=== PATIENT | male | born 1970 | race Caucasian/White ===

== ENCOUNTER 2019-01-24 21:04 | Observation (INO) | payer OTHER ==
[2019-01-24 22:56] LABS: ADD MAN DIFF? NO
[2019-01-24 22:58] LABS: BASOPHIL # 0.1 10^3/ul (0.0-0.1); BASOPHILS % 0.8 % (0.0-2.0); EOSINOPHILS # 0.2 10^3/ul (0.0-0.5); EOSINOPHILS % 2.5 % (0.0-7.0); HEMATOCRIT 40.2 % (42.0-52.0); HEMOGLOBIN 14.1 g/dl (14.0-18.0); LYMPHOCYTES # 1.9 10^3/ul (0.8-2.9); LYMPHOCYTES % 21.2 % (15.0-51.0); MEAN CORPUSCULAR HEMOGLOBIN 31.8 pg (29.0-33.0); MEAN CORPUSCULAR HGB CONC 35.1 g/dl (32.0-37.0); MEAN CORPUSCULAR VOLUME 90.7 fl (82.0-101.0); MEAN PLATELET VOLUME 11.7 fl (7.4-10.4); MONOCYTES % 11.2 % (0.0-11.0); NEUTROPHIL # 5.8 10^3/ul (1.6-7.5); NEUTROPHILS % 64.1 % (39.0-77.0); PLATELET COUNT 262 10^3/UL (140-415); RED BLOOD COUNT 4.43 10^6/ul (4.70-6.10); RED CELL DISTRIBUTION WIDTH 12.2 % (11.5-14.5)
[2019-01-24 23:15] LABS: ALANINE AMINOTRANSFERASE 34 IU/L (13-69); ALBUMIN 4.3 g/dl (3.3-4.9); ALBUMIN/GLOBULIN RATIO 1.13; ALKALINE PHOSPHATASE 98 IU/L (42-121); ANION GAP 9 (5-13); ASPARTATE AMINO TRANSFERASE 37 IU/L (15-46); BILIRUBIN,INDIRECT 0.4 mg/dl (0-1.1); BILIRUBIN,TOTAL 0.4 mg/dl (0.2-1.3); BLOOD UREA NITROGEN 28 mg/dl (7-20); CALCIUM 9.1 mg/dl (8.4-10.2); CARBON DIOXIDE 27 mmol/L (21-31); CHLORIDE 105 mmol/L (97-110); Estimated GFR 50 mL/min (>60); GLUCOSE 124 mg/dl (70-220); POTASSIUM 3.9 mmol/L (3.5-5.1); SODIUM 141 mmol/L (135-144); TOTAL PROTEIN 8.1 g/dl (6.1-8.1)
[2019-01-24 23:27] LABS: B-TYPE NATRIURETIC PEPTIDE 36 PG/ML (0-125); TROPONIN-I < 0.012 ng/ml (0.000-0.120)
[2019-01-25] MEDS ORDERED: ACETAMINOPHEN 325 MG TAB PO ×2 (03:30→10:00)
[2019-01-25] MEDS ORDERED: ONDANSETRON 4 MG INJ IV ×2 (03:30→10:00)
[2019-01-25 05:25] LABS: CREATINE KINASE 219 IU/L (23-200)
[2019-01-25 05:37] LABS: CK INDEX 0.5; TROPONIN-I 0.024 ng/ml (0.000-0.120)
[2019-01-25] MEDS ORDERED: NACL 0.9% 3 ML SYG IV (10:00)
[2019-01-25 10:44] LABS: CREATINE KINASE 194 IU/L (23-200)
[2019-01-25 10:57] LABS: CK INDEX 0.6; TROPONIN-I < 0.012 ng/ml (0.000-0.120)
[2019-01-25] MEDS ORDERED: AL HYDROX/MG HYDROX/SIMETH 30 ML CUP PO (12:00)
[2019-01-25] MEDS: PANTOPRAZOLE (EC) 40 MG TAB PO ×2 (13:30→22:38)
[2019-01-25] MEDS ORDERED: NITROGLYCERIN (SL) 0.4 MG TAB SL (14:30)
[2019-01-25 17:11] LABS: CREATINE KINASE 174 IU/L (23-200)
[2019-01-25 17:25] LABS: CK INDEX 0.6; CK-MB 1.06 ng/ml (0.0-2.4); TROPONIN-I < 0.012 ng/ml (0.000-0.120)
[2019-01-25] MEDS: SUCRALFATE (100 MG/ML) 10ML CUP PO (22:37)
[2019-01-26 06:46] LABS: ADD MAN DIFF? NO
[2019-01-26 06:49] LABS: BASOPHIL # 0.1 10^3/ul (0.0-0.1); BASOPHILS % 0.9 % (0.0-2.0); EOSINOPHILS # 0.3 10^3/ul (0.0-0.5); EOSINOPHILS % 4.4 % (0.0-7.0); HEMATOCRIT 43.1 % (42.0-52.0); HEMOGLOBIN 14.6 g/dl (14.0-18.0); LYMPHOCYTES # 2.1 10^3/ul (0.8-2.9); LYMPHOCYTES % 27.3 % (15.0-51.0); MEAN CORPUSCULAR HEMOGLOBIN 30.7 pg (29.0-33.0); MEAN CORPUSCULAR HGB CONC 33.9 g/dl (32.0-37.0); MEAN CORPUSCULAR VOLUME 90.7 fl (82.0-101.0); MEAN PLATELET VOLUME 11.7 fl (7.4-10.4); MONOCYTE # 0.8 10^3/ul (0.3-0.9); MONOCYTES % 10.2 % (0.0-11.0); NEUTROPHIL # 4.4 10^3/ul (1.6-7.5); NEUTROPHILS % 56.8 % (39.0-77.0); PLATELET COUNT 257 10^3/UL (140-415); RED BLOOD COUNT 4.75 10^6/ul (4.70-6.10); RED CELL DISTRIBUTION WIDTH 12.5 % (11.5-14.5)
[2019-01-26 06:49] LABS: WHITE BLOOD COUNT 7.8 10^3/ul (4.8-10.8)
[2019-01-26 07:09] LABS: HEMOGLOBIN A1C 5.6 % (0-5.9)
[2019-01-26 07:13] LABS: ANION GAP 6 (5-13); BLOOD UREA NITROGEN 17 mg/dl (7-20); CALCIUM 9.7 mg/dl (8.4-10.2); CARBON DIOXIDE 30 mmol/L (21-31); CHLORIDE 105 mmol/L (97-110); CREATININE 1.13 mg/dl (0.61-1.24); Estimated GFR > 60 mL/min (>60); GLUCOSE 104 mg/dl (70-220); SODIUM 141 mmol/L (135-144)
[2019-01-26 07:19] LABS: POTASSIUM 5.3 mmol/L (3.5-5.1)
[2019-01-26 08:20] LABS: CHOLESTEROL 158 mg/dl (100-200)
[2019-01-26 08:20] LABS: CHOL/HDL RATIO 5.6 RATIO; HDL CHOLESTEROL 28 mg/dl (27-67); LDL CHOLESTEROL,CALCULATED 103 mg/dl; TRIGLYCERIDES 135 mg/dl (0-149)
[2019-01-26] MEDS: SUCRALFATE (100 MG/ML) 10ML CUP PO ×4 (08:39→20:00)
[2019-01-26] MEDS: ASPIRIN (EC) 81 MG TAB PO (08:40)
[2019-01-26] MEDS: PANTOPRAZOLE (EC) 40 MG TAB PO ×2 (08:40→20:01)
[2019-01-26] MEDS: SODIUM POLYSTYRENE 15 GM KIT (POWDER + SORBITOL) PO (08:41)
[2019-01-26] MEDS: AMLODIPINE 10 MG TAB PO (08:49)
[2019-01-26] MEDS: LOSARTAN 50 MG TAB PO (08:49)
[2019-01-27] MEDS: SUCRALFATE (100 MG/ML) 10ML CUP PO (09:00)
[2019-01-27] MEDS: AMLODIPINE 10 MG TAB PO (09:00)
[2019-01-27] MEDS: LOSARTAN 50 MG TAB PO (09:00)
[2019-01-27] MEDS: PANTOPRAZOLE (EC) 40 MG TAB PO ×2 (09:17→20:09)
[2019-01-27] MEDS: ASPIRIN (EC) 81 MG TAB PO (09:17)
[2019-01-27 11:39] LABS: ANION GAP 12 (5-13); BLOOD UREA NITROGEN 13 mg/dl (7-20); CALCIUM 9.3 mg/dl (8.4-10.2); CARBON DIOXIDE 27 mmol/L (21-31); CHLORIDE 105 mmol/L (97-110); CREATININE 1.07 mg/dl (0.61-1.24); Estimated GFR > 60 mL/min (>60); GLUCOSE 93 mg/dl (70-220); POTASSIUM 3.9 mmol/L (3.5-5.1); SODIUM 144 mmol/L (135-144)
[2019-01-27] MEDS: SUCRALFATE 1 GM TAB PO ×3 (12:15→20:09)
[2019-01-27] MEDS ORDERED: PROPOFOL 40 ML (18:38)
[2019-01-27] MEDS ORDERED: LIDOCAINE 2% (SDV) 5 ML INJ (18:38)
== END 2019-01-27 20:10 | disposition home or self-care (01) ==
LOC: E/R 21:04 → TEL 01-25 03:05
DX: R07.9 Chest pain, unspecified (principal); K29.70 Gastritis, unspecified, without bleeding; I10 Essential (primary) hypertension; K21.9 Gastro-esophageal reflux disease without esophagitis
CPT/HCPCS: 36415; 71045; 80048; 80053; 80061; 82550; 82553; 83036; 83880; 84484; 85025; 88305; 88312; 93005; 93306; 99285-25; G0378